=== PATIENT | female | born 1985 | race Caucasian/White ===

== ENCOUNTER → 2023-09-16 13:47 | Outpatient (BNVA) | payer BC, SELFPAY | PROVIDERS: PCP Physician Assistant Medical; Visit Provider Surgery ==

== ENCOUNTER 2023-10-21 07:54 | Outpatient (AMB) | payer BC, SELFPAY ==
--- OUTSIDE RECORDS SUMMARY | 2023-10-21 07:55 | XMS_ITS | Continuity of Care Document ---
Author Organization [facility] oenterology Address [address] [place] [address]- Care Team Providers Care Guest Laundry Attendant Name Role Phone Anjel Ridley Primary Care Physician [phone] Encounter [facility] Date(s): 05/11/22 - 06/10/22 [facility] G[facility] [address] [place] [address]- Attending Physician: Admtr, Duran Admitting Physician: Admtr, Ar8 Referring Physician: Admtr, Ar8 Allergies, Adverse Reactions, Alerts Substance Reaction Severity Status Adhesive Bandage Active Medications Beatriz By Mouth, 0 Refills, Maintenance, 12/11/21 17:15:00 EDT, Partial fill upon patient request if the prescription is for a schedule II opioid drug. Start Date: 12/11/21 Status: Ordered atorvastatin 10 mg oral tablet 1 tablet = 10 mg, By Mouth, Daily, 0 Refills, Maintenance, 12/11/21 17:14:00 EDT, Partial fill uponpatient request if the prescription is for a schedule II opioid drug. Start Date: 12/11/21 Status: Ordered CeleXA 40 mg oral tablet 40 mg, 1, tablet, By Mouth, Daily, Refills 0, Maintenance, 12/11/21 17:14:00 EDT, Partial fill uponpatient request if the prescription is for a schedule II opioid drug. Start Date: 12/11/21 Status: Ordered Shea = 0.35 mg, By Mouth, Daily, 0 Refills, Maintenance, 12/11/21 17:15:00 EDT, Partial fill upon patient request if the prescription is for a schedule II opioid drug. Start Date: 12/11/21 Status: Ordered omeprazole 40 mg oral enteric coated capsule 1 capsule = 40 mg, By Mouth, Daily, 0 Refills, Maintenance, 12/11/21 17:16:00 EDT, Partial fill upon patient request if the prescription is for a schedule II opioid drug. Start Date: 12/11/21 Status: Ordered Patient Care team information Care Team Personnel Name: Anjel Ridley Position: [facility] Outreach Member Role: PCP Address: Address: [address] [place] [address]- Care Team Related Persons Name: ROSA CLAYTON Address: [place] [address]
--- OUTSIDE RECORDS SUMMARY | 2023-10-21 07:55 | XMS_ITS | Continuity of Care Document ---
Author Organization [facility] oenterology Address [address] [place] [address]- Care Team Providers Care Radio Time Sales Supervisor Name Role Phone Anjel Ridley Primary Care Physician [phone] Encounter [facility] Date(s): 02/11/22 - 06/10/22 [facility] Gastroenterology [address] [place] [address]- Attending Physician: Fabio SALDANA, Emilie Vega Admitting Physician: Fabio SALDANA, Emilie Vega Referring Physician: Anjel Ridley Allergies, Adverse Reactions, Alerts Substance Reaction Severity [...] Care Team Personnel Name: Anjel Ridley Position: [facility] Outreach Member Role: PCP Address: Address: [address] [place] [address]- Care Team Related Persons Name: ROSA CLAYTON Address: home [address] [place] [address]
--- OUTSIDE RECORDS SUMMARY | 2023-10-21 07:55 | XMS_ITS | Continuity of Care Document ---
Author Organization [facility] Address [address] [place] [address]- Care Team Providers Care Exchange Teller Name Role Phone Anjel Ridley Primary Care Physician [phone] [place] [facility] [place] 07/17/23 - 07/17/23 [facility] [address] [place] [address]- Encounter Diagnosis Ankle sprain(Final) - 07/17/23 Strain of Achilles tendon(Final) - 07/17/23 Discharge Disposition: A-D/C Home Attending Physician: Ger Martinez MD Admitting Physician: Ger Martinez MD Referring Physician: Not on Staff, Referring MD Allergies, Adverse Reactions, Alerts Substance Reaction Severity [...] opioid drug. Start Date: 12/11/21 Status: Ordered Problem List Condition Confirmation Course Effective Dates Status Health St [facility]us Informant Obese class II Confirmed Active Results Radiology Reports * Exam Date Time Procedure Performing Provider Status 07/17/23 1:37 PM Foot Min 3 Views Right Cathy Germain; Auth (Verified) Notes: (Foot Min 3 Views Right) Reason For Exam: with Pain;Trauma RESULT: Foot Min 3 Views Right Ankle Min 3 Views Right, Foot Min 3 Views Right CLINICAL INDICATION: Hx of Present Illness: R Ankle Inj: Slip off of bottom stair, heard a pop and a crunch. Ank top of foot swollen. 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 AP, lateral, oblique views of the right foot were obtained. FINDINGS: There is no fracture or dislocation. The ankle mortise is not widened. Incidental accessory navicula. No retained foreign body is identified. Hindfoot midfoot alignment is normal. IMPRESSION: No fracture or dislocation. WSN: [id number] Ordering Physician: Elia Ambrose Dictated By: Serjio Dillard MD Dictated Date/Time: 07/17/23 1:50 pm Reviewed By: Serjio Dillard MD Signed By: Serjio Dillard MD Signed Date/Time: 07/17/23 1:50 pm Transcribed By: ROBERTA Transcribed Date/Time: 07/17/23 1:46 pm * Exam Date Time Procedure Performing Provider Status 07/17/23 1:37 PM Ankle Min 3 Views Right Cathy Germain ; Auth (Verified) Notes: (Ankle Min 3 Views Right) Reason For Exam: with Pain;Trauma RESULT: Ankle Min 3 Views Right Ankle Min 3 Views Right, Foot Min 3 Views Right CLINICAL INDICATION: Hx of Present Illness: R Ankle Inj: Slip off of bottom stair, heard a pop and a crunch. Ank top of foot swollen. 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 AP, lateral, oblique views of the right foot were obtained. FINDINGS: There is no fracture or dislocation. The ankle mortise is not widened. Incidental accessory navicula. No retained foreign body is identified. Hindfoot midfoot alignment is normal. IMPRESSION: No fracture or dislocation. WSN: [id number] Ordering Physician: Elia Ambrose Dictated By: Serjio Dillard MD Dictated Date/Time: 07/17/23 1:50 pm Reviewed By: Serjio Dillard MD Signed By: Serjio Dillard MD Signed Date/Time: 07/17/23 1:50 pm Transcribed By: ROBERTA Transcribed Date/Time: 07/17/23 1:46 pm Vital Signs Most recent to oldest [Reference Range]: 1 2 Height 155 cm (07/17/23 1:08 PM) 155 cm (07/17/23 1:04 PM) Weight 89.5 kg (07/17/23 1:08 PM) 89.5 kg (07/17/23 1:04 PM) Oxygen Saturation [94-100 %] 100 % (07/17/23 1:04 PM) Pulse Rate [55-90 bpm] 110 bpm *H* (07/17/23 1:04 PM) Body Mass Index [18.5-24.99 kg/m2] 37.25 kg/m2 *>HHI* (07/17/23 1:04 PM) Blood Pressure [90-138/55-84 mm Hg] 133/ 90mm Hg (07/17/23 1:04 PM) Respiratory Rate [16-30 br/min] 20 br/mi n (07/17/23 1:04 PM) Temperature [96.8-100.4 DegF] 97.5 DegF (07/17/23 1:04 PM) Mode of Delivery (Oxygen) Room air (07/17/23 1:04 PM) Blood pressure sites Arm, right (07/17/23 1:04 PM) Temperature Route Temporal (07/17/23 1:04 PM) Dry Weight 89.5 kg (07/17/23 1:08 PM) 89.5 kg (07/17/23 1:04 PM) Weight Obtained Via Patient/family state d (07/17/23 1:04 PM) Dry Weight Obtained Via Patient/family s tated (07/17/23 1:04 PM) Note * Elia Alejandro: PERFORM Event Display: Patient Education Leaflets Authored Date: [id number] Achilles Tendon Rupture, Partial or Complete ?? [id number] Achilles Tendon Rupture, Partial or Complete The Achilles tendon connects the muscles in the back of your lower leg to your heel bone. It lets you point your foot down. This is called a ???step on the gas pedal?? motion. This movement is important for walking, running, and jumping. A sudden strong contraction of the lower leg can partially tear (rupture) the Achilles tendon. This injury can happen while playing sports. This injury is more likely if you have injured the tendon in the past. It is also more likely if the tendon is inflamed from stress.?? When the injury happens, you may feel a pop or snap, or like you have been kicked. An Achilles tendon tear will cause swelling, bruising, and pain in the ankle area. You will have trouble walking??orpushing off the ground with your foot.?? A complete Achilles tear is often treated with surgery to attach the torn ends of the tendon. This is followed by??up to 12 weeks in a walking cast, boot, or splint. The injury can also be treated without surgery, but the tendon will take longer to heal. The risk of rupturing it again is also greater than with surgery. With either type of treatment, you may need physical therapy to strengthen your Achilles tendon. It??often??takes up to 6 months??to return to your past level of activity. And ittakes about 1 year to fully recover. Home care Medicine Your healthcare provider may prescribe medicines for pain. Or you may use acetaminophen or Ibuprofen to control the pain. Talk with your provider before taking these medicines if you have chronic liver or kidney disease. Also talk with your provider if you have had an ulcer or gastrointestinal bleeding. General care ??? Rest.??Use crutches as directed. Don't put any weight on the injured leg until your healthcare provider says it is OK.?? You will be told to see an orthopedic doctor as soon as possible. This is a doctor with special training to treat bone and muscle problems. ??? Use ice.??Put a cold pack on the injured area for 20 minutes at a time. Do this at least 4 to 8 times a day for the first 48 hours. After the first 48 hours, use the cold pack to ease pain and swelling, as needed. Youcan make your own cold pack from a sealed bag of frozen peas or ice. Wrap the bag in a towel.??Don???t put the cold source directly on your skin.??(If you are using ice, be careful to avoid getting the cast wet as the ice melts.) If you have a splint that can't be removed, put the cold pack over the splint. ??? Use compression.??The healthcare provider may give you an elastic wrap, boot, air cast, or splint to help ease swelling. Use this as the provider tells you to. ??? Elevate your leg.??During the first 48 hours, keep your injured leg elevated on a pillow when you are sitting or lying down. The pillow should be at a level above your heart. This is very important to reduce swelling. ??? Keep the splint or cast dry.??When bathing, protect it with a large plastic bag.??Make sure to tape the plastic bag??closed, or use rubber bands. If a fiberglass splint or cast gets wet, you can dry it with a business division chair. ?? Follow-up care You will be referred to an orthopedic doctor for follow-up care. Surgery may be needed to repair this injury, so it is very important to make an appointment with the specialist as soon as you can. ?? When to get medical advice Call your healthcare provider right away if any of these occur: ??? A plaster splint or cast gets wet or soft or breaks ??? A fiberglass splint or cast gets wet and doesn't dry in 24 hours ??? Pain or swelling gets worse, or redness appears ??? Toes??or the injured area??become cold, blue, numb, ortingly ??? You can't put weight on the injured leg after being told to do so ?? Last Reviewed Date: 2021 ?? [employer]. All rights reserved. This information is not intended as a substitute for professional medical care. Always follow your healthcare professional's instructions. ?? * Elia Alejandro: PERFORM Event Display: Patient Education Leaflets Authored Date: [id number] Ankle Sprain (Adult) ?? [id number] Ankle Sprain (Adult) An ankle sprain is a stretching or tearing of the ligaments that hold the ankle joint together. There are no broken bones. An ankle sprain is a common injury for both children and adults. It happens when the ankle turns, twists, or rolls in an awkward way. This can be caused by a sports injury. Or it can happen from doing something as simple as stepping on an uneven surface. Ligaments are made of tough connective tissue. Normally, ligaments stretch a certain amount and then go back to their normal place. A sprain happens when a ligament is forced to stretch more than thenormal amount. A severe sprain can actually tear the ligaments. If you have a severe sprain, you may have felt or heard something like a pop when you were injured. Ankle sprains are given a grade depending on whether they are mild, moderate, or severe: ??? Grade 1 sprain. A mild sprain with minor stretching and damage to the ligament. ??? Grade 2 sprain. A moderate sprain where the ligament is partly torn. ??? Grade 3 sprain. The most severe kind of sprain. The ligament is completely torn. Most sprains??take about 4 to 6 weeks to heal. A severe sprain can take several months to recover. Your healthcare provider may order X-rays to be sure you don???t have a fracture, or broken bone. The injured area will feel sore. Swelling and pain may make it hard to walk. You may need crutches if walking is painful. Or your provider may have you use a cast boot or air splint. This will dependon the grade of ankle sprain that you have. Home care ??? For a Grade 1 sprain, use RICE (rest, ice, compression, and elevation): ??? Rest your ankle. Don???t walk on it. ??? Ice should be used right away to help control swelling. Place an ice pack overthe injured area for 20 minutes. Do this every??3 to 6??hours??for the first??24 to 48 hours.??Keepusing ice packs to ease pain and swelling as needed. To make an ice pack, put ice cubes in a plastic??bag that seals at the top. Wrap the bag in a??clean, thin??towel or cloth. Never put ice or an ice pack directly on the skin. The ice pack can be put right on the cast, bandage, or splint. As the ice melts, be careful that the cast, bandage, or splint doesn???t get wet. If you have a boot, open it to apply an ice pack, unless told otherwise by your provider. ??? Compression devices help to control swelling. They also keep the ankle from moving and support your injured ankle. These devices include dressings, elastic bandages, and wraps. ??? Elevate or raise your ankle above the level of yourheart when sitting or lying down. This is very important for the first 48 hours. ??? Follow the RICE guidelines for a Grade 2 sprain. This type of sprain will take longer to heal. Your provider may have you wear a splint, cast, or brace to keep your ankle from moving. ?If you have a Grade 3 sprain, you are at risk for long-term ankle instability. In rare cases, surgery may be needed. Your provider may have you wear a short leg cast or a walking boot for 2 to 3 weeks. ??? After 48 hours, it may be helpful to apply heat??for 20 minutes several times a day. You can do this with a heating pad or warm compress. Or you may want to go back and forth between using ice and heat. Never apply heat directly to the skin. Always wrap the heating pad or warm compress in a clean, thin towel or cloth. ??? You may use??molf-sze-xollkke pain medicine??(NSAIDS or nonsteroidal anti-inflammatory drugs) to control pain, unless another pain medicine was prescribed. Talk with your provider before using these medicines if you have chronic liver or kidney disease, stomach ulcer or gastrointestinal bleeding, or if you take a blood thinner. ??? Follow any rehabilitation exercises your provider gives you.These can help you be more flexible and improve your balance and coordination. This is helpful in preventing long-term ankle problems. Prevention To help prevent ankle sprains, it???s important to have good strength, balance, and flexibility. Besure to: ??? Always warm up before you exercise or do something very active ??? Be careful when walking or running on uneven or cracked surfaces ??? Wear shoes that are in good condition and fit well??? Listen to your body???s signals to slow down when you are in pain or tired ?? Follow-up care Any X-rays you had today don???t show any broken bones, breaks, or fractures. Sometimes fractures don???t show up on the first X-ray. Bruises and sprains can sometimes hurt as much as a fracture. These injuries can take time to heal completely. If your symptoms don???t get better or they get worse,talk with your healthcare provider. You may need a repeat X-ray. Follow up with your healthcare provider, or as advised. Check for any warning signs listed below. ?? When to get medical advice Call your healthcare provider right away??if any of these occur: ??? Fever of 100.4 F (38 C) or higher, or as directed by your provider ??? Chills ??? The injury doesn???t seem to be healing ??? The swelling comes back ??? The cast or splint has a bad smell ??? The plaster cast or splint gets wet or soft ??? The fiberglass cast or splint gets wet and doesn't dry for 24 hours ??? Pain or swelling gets worse, or redness appears ??? Your toes become cold, blue, numb, or tingly ??? The skin is discolored (looks blue, purple, or luna), has blisters, or is irritated ??? You re-injure your ankle ?? Last Reviewed Date: 2021 ?? [id number] [employer]. All rights reserved. This information is not intended as a substitute for professional medical care. Always follow your healthcare professional's instructions. ?? Patient Care team information Care Team Personnel Name: Anjel Ridley Position: S Outreach Member Role: PCP Address: Address: [address] [place] [address]- Care Team Related Persons Name: ROSA CLAYTON Address: home [address] [place] [address]
--- NOTE | 2023-10-21 08:02 | A.OFFVIS_ITS ---
VS Expanded 10/21/23 08:28 Height 5 ft 2 in Weight 201 lb 8 oz BMI 36.9 Body Fat % 45.8 Body Fat Mass 92.4 Fat Free Mass 109.4 Visceral Fat Rating 11 Body Water % 38.8 Body Water Mass 78.2 Basal Metabolic Rate/Score 1,558 Intake Visit Reasons: [employer] BMI 36.1 Allergies peaches Allergy (Mild, Uncoded 10/21/23 08:03) Swelling strawberries Allergy (Uncoded 10/21/23 08:03) Swelling Medication List - Last Reconciled 10/21/23 by Gautam Tate MD atorvastatin 40 mg PO DAILY citalopram 40 mg PO DAILY hydroxyzine HCl 25 mg PO BID PRN lorazepam 0.5 mg PO DAILY PRN norethindrone (contraceptive) (Shea) 0.35 mg PO DAILY zolmitriptan 2.5 mg PO Q2-4H PRN HPI HPI [employer] BMI 36.1: Details: Start time: 8.00am, End time: 8.55am ?I spent 50 minutes speaking with the patient on the phone plus an additional 5 minutes reviewing and updating records for a total of 55 minutes HPI Comments Details: The patient has known familial hypercholesterolemia and has persistently high level of cholesterol depsite continuous use of high dose of statins. In addition, she is at high risk for premature CAD as her dad has his first CT at age 39 and since then he had 4 heart attacks and a stroke. Previous weight loss efforts: keto diet, weight watchers, Wegovy, 5 and 1 meal plan (no weight loss) Wakes up: 5.45am, Sleeps: 9pm Breakfast: skips Lunch: 12pm (chicken salad) Dinner: 7pm (pork or chicken with vegetable and starch) Snacks: 9-10am (Peanut butter crackers), 4pm (cottage cheese, pickles, nuts), 9pm (pretzels or popcorn) Exercise: Has a treadmill, bike or elliptical Fluids: Coffee: none, Hot tea: 3/wk (1 cup with splenda), soda: diet Gingerale, juice: none, ETOH: 2/wk (Vodka with seltzer 1-2 drinks x3-4/week [facility]LY [facility] Medical History (Updated 07/05/24 @ 08:33 by Gautam Tate MD) Daytime hypersomnia Snoring Premature coronary artery disease Familial hypercholesterolemia PCOS (polycystic ovarian syndrome) Medullary sponge kidney Back pain Migraines GERD (gastroesophageal reflux disease) Anxiety Depression Hyperlipidemia Surgical History (Updated 09/16/23 @ 14:13 by Whitney Deleon [facility]) Hx of wisdom tooth extraction Hx of abdominal surgery Hx of tonsillectomy Family History (Updated 10/19/23 @ 11:14 by Martha Carter CMA) Mother Hypertension Afib Father Hypertension Heart problem Traveling blood clot in leg Prediabetes Social History (Updated 10/19/23 @ 11:15 by Martha Carter CMA) Alcohol intake: current Alcohol intake frequency: a few times a week Patient Tobacco Use Status: Current everyday Tobacco user Tobacco use type: Cigarette Cigarettes Per Day: 5 Telehealth Telehealth Telehealth Platform: Telephone Location of provider rendering services: practice address Location of patient: address on file Patient Identification confirmed using: Name, : Yes Telehealth method: voice only Patient verbally consented to treatment: Yes Patient verbally consented to billing insurance company: Yes Patient informed of any privacy concerns related to visit: Yes Minutes spent on Phone/Video with Pt.: 55 Assessment & Plan Assessment & Plan (1) Obesity: Code(s): E66.9 - Obesity, unspecified Category: Medical Qualifiers: Obesity type: due to excess calories Obesity classification: adult class 2 (BMI 35 - 39.9) Serious obesity comorbidity presence: with serious comorbidity Body mass index: BMI 36.0-36.9 Qualified Code(s): E66.01 - Morbid (severe) obesity due to excess calories; Z68.36 - Body mass index [BMI] 36.0- 36.9, adult Plan: 1.? Plan for lap sleeve gastrectomy. If diaphragmatic or ventral hernias are present at time of surgery, these will be repaired laparoscopically as well. Risks and complications include possible conversion to an open procedure, anastomotic leak, bleeding requiring transfusion, small bowel obstruction, , DVT and pulmonary embolism, cardiac, or pulmonary complications, as chcf complications such as anastomotic ulcer, insufficient weight loss and vitamin deficiencies. I emphasized the importance of close follow-up, adherence to instructions and good communication. 2. You will receive a link of our software hipolito to generate an individualized nutritional and exercise plan specific for you. Please send me a screenshot of the plans you will generate Meal to include lean meat (beef, fish, pork, turkey, chicken), or uruguayan yogurt, or egg whites, or beans with a salad with olive oil and fruits (berries, pears, apples, kiwi). Avoid salt, breads, potatoes, rice, pasta, desserts. ?3. If you choose shakes, each shake would be drunk slowly, like coffee in a p eriod of 2 hours. ?4. If you choose bars, cut each bar in 4 pieces and eat each piece in 30min ?to make each bar last 2 hours. ?5. I emphasized the importance of measuring accurately the food portion and measure it when serving the food in plate ?6. The meal portions include a specific number of forks of meat and salad. You always eat the meat portion but you can replace up to half of salad/vegetables portion with rice, potatoes or pasta, or a fruit ?if you like. The less you do it the better weight loss will be. ?7. One full-size fork is what it can be scooped on the fork without falling aside and not what can be bit with the fork. Use regular forks like those you find in a typical restaurant. ?8.? Please send me weight measurements as soon as possible and then once a week. Always include your diet and exercise plan. 9. The best choice would be to purchase a stationary bike, elliptical or treadmill at home that can track calories. Let me know if you do so I can give you an exercise plan. ?10.?It is important of avoiding and for at least 18 months postoperatively and has been discussed at the infosession. ?11. Goal is to lose at least 1.5-2lbs per week ?12. Goal to lose 10% of your weight before surgery, which is about 20lbs. Ultimate weight goal: 181lbs before surgery 13. Please follow the diet plan exactly without any change. If you don't like something about the plan or you feel hungry you need to communicate with me so I can help you revise the plan. You should not change the plan yourself. 14. To be scheduled for EGD due to history of GERD. The possibility of biopsies was discussed. Patient needs to avoid use of NSAIDs and aspirin for 1 week prior to EGD. Risks of perforation and bleeding was discussed with the patient. This will be an outpatient procedure with IV sedation. Orders: Orders Insulin Today E28.2 - Polycystic ovarian syndrome, E66.9 - Obesity, unspecified, E78.01 - Familial hypercholesterolemia, E78.5 - Hyperlipidemia, unspecified, F32.A - Depression, unspecified, F41.9 - Anxiety disorder, unspecified, G43.909 - Migraine, unspecified, not intractable, without status migrainosus, G47.10 - Hypersomnia, unspecified, I25.10 - Atherosclerotic heart disease of [place] coronary artery without angina pectoris, K21.9 - Gastro- esophageal reflux disease without esophagitis, M54.9 - Dorsalgia, unspecified, Q61.5 - Medullary cystic kidney, R06.83 - Snoring, Z68.36 - Body mass index [BMI] 36.0-36.9, adult H Pylori Breath Test Today E28.2 - Polycystic ovarian syndrome, E66.9 - Obesity, unspecified, E78.01 - Familial hypercholesterolemia, E78.5 - Hyperlipidemia, unspecified, F32.A - Depression, unspecified, F41.9 - Anxiety disorder, unspecified, G43.909 - Migraine, unspecified, not intractable, without status migrainosus, G47.10 - Hypersomnia, unspecified, I25.10 - Atherosclerotic heart disease of [place] coronary artery without angina pectoris, K21.9 - Gastro-esophageal reflux disease without esophagitis, M54.9 - Dorsalgia, unspecified, Q61.5 - Medullary cystic kidney, R06.83 - Snoring, Z68.36 - Body mass index [BMI] 36.0-36.9, adult Complete Blood Count Auto Diff Today E28.2 - Polycystic ovarian syndrome, E66.9 - Obesity, unspecified, E78.01 - Familial hypercholesterolemia, E78.5 - Hyperlipidemia, unspecified, F32.A - Depression, unspecified, F41.9 - Anxiety disorder, unspecified, G43.909 - Migraine, unspecified, not intractable, without status migrainosus, G47.10 - Hypersomnia, unspecified, I25.10 - Atherosclerotic heart disease of [place] coronary artery without angina pectoris, K21.9 - Gastro-esophageal reflux disease without esophagitis, M54.9 - Dorsalgia, unspecified, Q61.5 - Medullary cystic kidney, R06.83 - Snoring, Z68.36 - Body mass index [BMI] 36.0-36.9, adult Lipid Panel Today E28.2 - Polycystic ovarian syndrome, E66.9 - Obesity, unspecified, E78.01 - Familial hypercholesterolemia, E78.5 - Hyperlipidemia, unspecified, F32.A - Depression, unspecified, F41.9 - Anxiety disorder, unspecified, G43.909 - Migraine, unspecified, not intractable, without status migrainosus, G47.10 - Hypersomnia, unspecified, I25.10 - Atherosclerotic heart disease of [place] coronary artery without angina pectoris, K21.9 - Gastro- esophageal reflux disease without esophagitis, M54.9 - Dorsalgia, unspecified, Q61.5 - Medullary cystic kidney, R06.83 - Snoring, Z68.36 - Body mass index [BMI] 36.0-36.9, adult Vitamin B12 and Folate Today E28.2 - Polycystic ovarian syndrome, E66.9 - Obesity, unspecified, E78.01 - Familial hypercholesterolemia, E78.5 - Hyperlipidemia, unspecified, F32.A - Depression, unspecified, F41.9 - Anxiety disorder, unspecified, G43.909 - Migraine, unspecified, not intractable, without status migrainosus, G47.10 - Hypersomnia, unspecified, I25.10 - Atherosclerotic heart disease of [place] coronary artery without angina pectoris, K21.9 - Gastro-esophageal reflux disease without esophagitis, M54.9 - Dorsalgia, unspecified, Q61.5 - Medullary cystic kidney, R06.83 - Snoring, Z68.36 - Body mass index [BMI] 36.0-36.9, adult Zinc Today E28.2 - Polycystic ovarian syndrome, E66.9 - Obesity, unspecified, E78.01 - Familial hypercholesterolemia, E78.5 - Hyperlipidemia, unspecified, F32.A - Depression, unspecified, F41.9 - Anxiety disorder, unspecified, G43.909 - Migraine, unspecified, not intractable, without status migrainosus, G47.10 - Hypersomnia, unspecified, I25.10 - Atherosclerotic heart disease of [place] coronary artery without angina pectoris, K21.9 - Gastro-esophageal reflux disease without esophagitis, M54.9 - Dorsalgia, unspecified, Q61.5 - Medullary cystic kidney, R06.83 - Snoring, Z68.36 - Body mass index [BMI] 36.0-36.9, adult Vitamin A Today E28.2 - Polycystic ovarian syndrome, E66.9 - Obesity, unspecified, E78.01 - Familial hypercholesterolemia, E78.5 - Hyperlipidemia, unspecified, F32.A - Depression, unspecified, F41.9 - Anxiety disorder, unspecified, G43.909 - Migraine, unspecified, not intractable, without status migrainosus, G47.10 - Hypersomnia, unspecified, I25.10 - Atherosclerotic heart disease of [place] coronary artery without angina pectoris, K21.9 - Gastro-esophageal reflux disease without esophagitis, M54.9 - Dorsalgia, unspecified, Q61.5 - Medullary cystic kidney, R06.83 - Snoring, Z68.36 - Body mass index [BMI] 36.0-36.9, adult Ferritin Today E28.2 - Polycystic ovarian syndrome, E66.9 - Obesity, unspecified, E78.01 - Familial hypercholesterolemia, E78.5 - Hyperlipidemia, unspecified, F32.A - Depression, unspecified, F41.9 - Anxiety disorder, unspecified, G43.909 - Migraine, unspecified, not intractable, without status migrainosus, G47.10 - Hypersomnia, unspecified, I25.10 - Atherosclerotic heart disease of [place] coronary artery without angina pectoris, K21.9 - Gastro- esophageal reflux disease without esophagitis, M54.9 - Dorsalgia, unspecified, Q61.5 - Medullary cystic kidney, R06.83 - Snoring, Z68.36 - Body mass index [BMI] 36.0-36.9, adult Vitamin D 25-OH Total Today E28.2 - Polycystic ovarian syndrome, E66.9 - Obesity, unspecified, E78.01 - Familial hypercholesterolemia, E78.5 - Hyperl ipidemia, unspecified, F32.A - Depression, unspecified, F41.9 - Anxiety disorder, unspecified, G43.909 - Migraine, unspecified, not intractable, without status migrainosus, G47.10 - Hypersomnia, unspecified, I25.10 - Atherosclerotic heart disease of [place] coronary artery without angina pectoris, K21.9 - Gastro-esophageal reflux disease without esophagitis, M54.9 - Dorsalgia, unspecified, Q61.5 - Medullary cystic kidney, R06.83 - Snoring, Z68.36 - Body mass index [BMI] 36.0-36.9, adult US abdomen comp w elastography Today E28.2 - Polycystic ovarian syndrome, E66.9 - Obesity, unspecified, E78.01 - Familial hypercholesterolemia, E78.5 - Hyperlipidemia, unspecified, F32.A - Depression, unspecified, F41.9 - Anxiety disorder, unspecified, G43.909 - Migraine, unspecified, not intractable, without status migrainosus, G47.10 - Hypersomnia, unspecified, I25.10 - Atherosclerotic heart disease of [place] coronary artery without angina pectoris, K21.9 - Gastro-esophageal reflux disease without esophagitis, M54.9 - Dorsalgia, unspecified, Q61.5 - Medullary cystic kidney, R06.83 - Snoring, Z68.36 - Body mass index [BMI] 36.0-36.9, adult ECG 12 lead EKG Today E28.2 - Polycystic ovarian syndrome, E66.9 - Obesity, unspecified, E78.01 - Familial hypercholesterolemia, E78.5 - Hyperlipidemia, unspecified, F32.A - Depression, unspecified, F41.9 - Anxiety disorder, unspecified, G43.909 - Migraine, unspecified, not intractable, without status migrainosus, G47.10 - Hypersomnia, unspecified, I25.10 - Atherosclerotic heart disease of [place] coronary artery without angina pectoris, K21.9 - Gastro- esophageal reflux disease without esophagitis, M54.9 - Dorsalgia, unspecified, Q61.5 - Medullary cystic kidney, R06.83 - Snoring, Z68.36 - Body mass index [BMI] 36.0-36.9, adult FL upper GI w air Today E28.2 - Polycystic ovarian syndrome, E66.9 - Obesity, unspecified, E78.01 - Familial hypercholesterolemia, E78.5 - Hyperlipidemia, unspecified, F32.A - Depression, unspecified, F41.9 - Anxiety disorder, unspecified, G43.909 - Migraine, unspecified, not intractable, without status migrainosus, G47.10 - Hypersomnia, unspecified, I25.10 - Atherosclerotic heart disease of [place] coronary artery without angina pectoris, K21.9 - Gastro- esophageal reflux disease without esophagitis, M54.9 - Dorsalgia, unspecified, Q61.5 - Medullary cystic kidney, R06.83 - Snoring, Z68.36 - Body mass index [BMI] 36.0-36.9, adult Hemoglobin A1c Today E28.2 - Polycystic ovarian syndrome, E66.9 - Obesity, unspecified, E78.01 - Familial hypercholesterolemia, E78.5 - Hyperlipidemia, unspecified, F32.A - Depression, unspecified, F41.9 - Anxiety disorder, unspecified, G43.909 - Migraine, unspecified, not intractable, without status migrainosus, G47.10 - Hypersomnia, unspecified, I25.10 - Atherosclerotic heart disease of [place] coronary artery without angina pectoris, K21.9 - Gastro- esophageal reflux disease without esophagitis, M54.9 - Dorsalgia, unspecified, Q61.5 - Medullary cystic kidney, R06.83 - Snoring, Z68.36 - Body mass index [BMI] 36.0-36.9, adult IRON PROFILE Today E28.2 - Polycystic ovarian syndrome, E66.9 - Obesity, unspecified, E78.01 - Familial hypercholesterolemia, E78.5 - Hyperlipidemia, unspecified, F32.A - Depression, unspecified, F41.9 - Anxiety disorder, unspecified, G43.909 - Migraine, unspecified, not intractable, without status migrainosus, G47.10 - Hypersomnia, unspecified, I25.10 - Atherosclerotic heart disease of [place] coronary artery without angina pectoris, K21.9 - Gastro- esophageal reflux disease without esophagitis, M54.9 - Dorsalgia, unspecified, Q61.5 - Medullary cystic kidney, R06.83 - Snoring, Z68.36 - Body mass index [BMI] 36.0-36.9, adult Comprehensive Met. Panel Today E28.2 - Polycystic ovarian syndrome, E66.9 - Obesity, unspecified, E78.01 - Familial hypercholesterolemia, E78.5 - Hyperlipidemia, unspecified, F32.A - Depression, unspecified, F41.9 - Anxiety disorder, unspecified, G43.909 - Migraine, unspecified, not intractable, without status migrainosus, G47.10 - Hypersomnia, unspecified, I25.10 - Atherosclerotic heart disease of [place] coronary artery without angina pectoris, K21.9 - Gastro-esophageal reflux disease without esophagitis, M54.9 - Dorsalgia, unspecified, Q61.5 - Medullary cystic kidney, R06.83 - Snoring, Z68.36 - Body mass index [BMI] 36.0-36.9, adult C Reactive Protein Today E28.2 - Polycystic ovarian syndrome, E66.9 - Obesity, unspecified, E78.01 - Familial hypercholesterolemia, E78.5 - Hyperlipidemia, unspecified, F32.A - Depression, unspecified, F41.9 - Anxiety disorder, unspecified, G43.909 - Migraine, unspecified, not intractable, without status migrainosus, G47.10 - Hypersomnia, unspecified, I25.10 - Atherosclerotic heart disease of [place] coronary artery without angina pectoris, K21.9 - Gastro- esophageal reflux disease without esophagitis, M54.9 - Dorsalgia, unspecified, Q61.5 - Medullary cystic kidney, R06.83 - Snoring, Z68.36 - Body mass index [BMI] 36.0-36.9, adult Vitamin B1 Today E28.2 - Polycystic ovarian syndrome, E66.9 - Obesity, unspecified, E78.01 - Familial hypercholesterolemia, E78.5 - Hyperlipidemia, unspecified, F32.A - Depression, unspecified, F41.9 - Anxiety disorder, unspecified, G43.909 - Migraine, unspecified, not intractable, without status migrainosus, G47.10 - Hypersomnia, unspecified, I25.10 - Atherosclerotic heart disease of [place] coronary artery without angina pectoris, K21.9 - Gastro- esophageal reflux disease without esophagitis, M54.9 - Dorsalgia, unspecified, Q61.5 - Medullary cystic kidney, R06.83 - Snoring, Z68.36 - Body mass index [BMI] 36.0-36.9, adult TSH reflex Free T4 Today E28.2 - Polycystic ovarian syndrome, E66.9 - Obesity, unspecified, E78.01 - Familial hypercholesterolemia, E78.5 - Hyperlipidemia, unspecified, F32.A - Depression, unspecified, F41.9 - Anxiety disorder, unspecified, G43.909 - Migraine, unspecified, not intractable, without status migrainosus, G47.10 - Hypersomnia, unspecified, I25.10 - Atherosclerotic heart disease of [place] coronary artery without angina pectoris, K21.9 - Gastro- esophageal reflux disease without esophagitis, M54.9 - Dorsalgia, unspecified, Q61.5 - Medullary cystic kidney, R06.83 - Snoring, Z68.36 - Body mass index [BMI] 36.0-36.9, adult XR chest 2V Today E28.2 - Polycystic ovarian syndrome, E66.9 - Obesity, unspecified, E78.01 - Familial hypercholesterolemia, E78.5 - Hyperlipidemia, unspecified, F32.A - Depression, unspecified, F41.9 - Anxiety disorder, unspecified, G43.909 - Migraine, unspecified, not intractable, without status migrainosus, G47.10 - Hypersomnia, unspecified, I25.10 - Atherosclerotic heart disease of [place] coronary artery without angina pectoris, K21.9 - Gastro- esophageal reflux disease without esophagitis, M54.9 - Dorsalgia, unspecified, Q61.5 - Medullary cystic kidney, R06.83 - Snoring, Z68.36 - Body mass index [BMI] 36.0-36.9, adult RT home sleep study Today E28.2 - Polycystic ovarian syndrome, E66.9 - Obesity, unspecified, E78.01 - Familial hypercholesterolemia, E78.5 - Hyperlipidemia, unspecified, F32.A - Depression, unspecified, F41.9 - Anxiety disorder, unspecified, G43.909 - Migraine, unspecified, not intractable, without status migrainosus, G47.10 - Hypersomnia, unspecified, I25.10 - Atherosclerotic heart disease of [place] coronary artery without angina pectoris, K21.9 - Gastro- esophageal reflux disease without esophagitis, M54.9 - Dorsalgia, unspecified, Q61.5 - Medullary cystic kidney, R06.83 - Snoring, Z68.36 - Body mass index [BMI] 36.0-36.9, adult Referrals Behavioral Health Referral E28.2 - Polycystic ovarian syndrome, E66.9 - Obesity, unspecified, E78.01 - Familial hypercholesterolemia, E78.5 - Hyperli pidemia, unspecified, F32.A - Depression, unspecified, F41.9 - Anxiety disorder, unspecified, G43.909 - Migraine, unspecified, not intractable, without status migrainosus, G47.10 - Hypersomnia, unspecified, I25.10 - Atherosclerotic heart disease of [place] coronary artery without angina pectoris, K21.9 - Gastro- esophageal reflux disease without esophagitis, M54.9 - Dorsalgia, unspecified, Q61.5 - Medullary cystic kidney, R06.83 - Snoring, Z68.36 - Body mass index [BMI] 36.0-36.9, adult Nutrition/Dietitian Referral E28.2 - Polycystic ovarian syndrome, E66.9 - Obesity, unspecified, E78.01 - Familial hypercholesterolemia, E78.5 - Hyperlipidemia, unspecified, F32.A - Depression, unspecified, F41.9 - Anxiety disorder, unspecified, G43.909 - Migraine, unspecified, not intractable, without status migrainosus, G47.10 - Hypersomnia, unspecified, I25.10 - Atherosclerotic heart disease of [place] coronary artery without angina pectoris, K21.9 - Gastro-esophageal reflux disease without esophagitis, M54.9 - Dorsalgia, unspecified, Q61.5 - Medullary cystic kidney, R06.83 - Snoring, Z68.36 - Body mass index [BMI] 36.0-36.9, adult
[2023-10-21 08:28] VITALS: BMI 36.9
== END 2023-10-21 08:56 | disposition home or self-care (01) ==
LOC: HO.HBS 07:54
PROVIDERS: PCP Physician Assistant Medical; Visit Provider Surgery
DX: E66.01 Morbid (severe) obesity due to excess calories (principal); Z68.36 Body mass index [BMI] 36.0-36.9, adult
CPT/HCPCS: 99443

== ENCOUNTER → 2023-10-21 07:54 | Outpatient (BNVA) | payer BC, SELFPAY | PROVIDERS: PCP Physician Assistant Medical; Visit Provider Surgery ==

== ENCOUNTER 2023-11-04 08:19 | Outpatient (REF) | payer BC, SELFPAY ==
--- NOTE | ~2023-11-04 | XR_ITS ---
EXAMINATION: XR CHEST CLINICAL INFORMATION: Obesity COMPARISON: None available. TECHNIQUE: 2 views of the chest were obtained. FINDINGS: No focal consolidation. No pneumothorax. Trachea is midline. Cardiac mediastinal silhouette is not enlarged. No large pleural effusion. Osseous structures are intact. Soft tissues are unremarkable. XR/XR chest 2V IMPRESSION: No acute cardiopulmonary process.
--- NOTE | ~2023-11-04 | US_ITS ---
EXAMINATION: US COMPLETE ABDOMEN WITH LIVER ELASTOGRAPHY CLINICAL INFORMATION: Obesity. COMPARISON: None available. TECHNIQUE: Real-time imaging of the abdominal viscera. Noninvasive ultrasound liver fibrosis assessment is performed using Reji ElastPQ point quantification shear wave elastography (2D-SWE) with a C5-2 MHz transducer. Multiple elastography samples are obtained. FINDINGS: PANCREAS: Normal. The visualized pancreatic head and body are normal in appearance. The remainder of the pancreas is obscured from visualization by the overlying bowel gas. ABDOMINAL AORTA: The proximal, middle, and distal aortic segments are normal in caliber. INFERIOR VENA CAVA: Visualized portions are normal. LIVER: The liver demonstrates normal size, contour and increased echogenicity. No focal lesion or intrahepatic biliary duct dilatation. The right lobe measures 15.9 cm in length. The left lobe measures 13.3 cm in length. Portal flow is towards the liver (hepatopetal). Shear wave liver elastography median stiffness is 1.37 m/s (reference: normal median stiffness is 1.3 m/s or less). IQR/median stiffness to assess sampling precision is 0.03 (reference: good quality data set is IQR/median stiffness of 0.15 or less). GALLBLADDER: Normal. The gallbladder is physiologically distended without evidence of stones, sludge, polyps, wall thickening or pericholecystic fluid. COMMON BILE DUCT: Normal in caliber measuring 0.3 cm in diameter. RIGHT KIDNEY: Normal. No hydronephrosis. No renal calculi or focal parenchymal lesions. The kidney measures 10.6 cm in maximum dimension. LEFT KIDNEY: Normal. No hydronephrosis. No renal calculi or focal parenchymal lesions. The kidney measures 10.1 cm in maximum dimension. SPLEEN: Normal. The spleen measures 9.7 cm in maximum dimension. FREE FLUID: None. US/US abdomen comp w elastography IMPRESSION: 1. There is generalized increase in hepatic echotexture, consistent with fatty infiltration or hepatocellular disease. Please correlate clinically. No focal hepatic mass or intrahepatic biliary dilatation is seen. 2. Liver elastography: In the absence of other known clinical signs, measurements rule out compensated advanced chronic liver disease. If there are known clinical signs, further testing may be needed for confirmation. REFERENCE: Society of [employer] in Ultrasound Liver Stiffness Thresholds (2020): LIVER STIFFNESS THRESHOLDS: *Liver Stiffness equal or less than 1.3 m/s: High probability of being normal. *Liver Stiffness less than 1.7 m/s: In the absence of other known clinical signs, rules out compensated advanced chronic liver disease. *Liver Stiffness 1.7-2.1 m/s: Suggestive of compensated advanced chronic liver disease but need further test for confirmation. *Liver Stiffness over 2.1 m/s: Rules in compensated advanced chronic liver disease. *Liver Stiffness over 2.4 m/s: Suggestive of clinically significant portal hypertension. QUALITY OF DATA SET: *IQR/Median value equal or less than 0.15 implies a quality data set. *IQR/Median value over 0.15 implies a poor quality data set. SIGNIFICANT CHANGE FROM PRIOR EXAM: Significant change if liver stiffness measurement is 10% or greater from prior exam. OTHER CONSIDERATIONS: The stage of liver fibrosis may be overestimated in the setting of acute hepatitis, liver inflammation, elevated liver function tests, hepatic vascular congestion, obstructive cholestasis, non-fasting state, and infiltrative diseases such as amyloidosis and lymphoma. In some patients with NAFLD, the liver stiffness thresholds for compensated advanced chronic liver disease may be lower. In causes other than viral hepatitis and NAFLD, liver stiffness thresholds are not well established.
--- NOTE | 2023-11-04 09:13 | ECG_ITS ---
Test Reason : OBESITY Blood Pressure : / mmHG Vent. Rate : 094 BPM Atrial Rate : 094 BPM P-R Int : 108 ms QRS Dur : 082 ms QT Int : 338 ms P-R-T Axes : 055 064 020 degrees QTc Int : 422 ms Sinus rhythm with short KS Otherwise normal ECG No previous ECGs available Referred By: Gautam Tate Electronically Signed By:MANPREET BURNS MD
[2023-11-04 09:52] LABS: MANUAL DIFF FLAG NO
[2023-11-04 10:35] LABS: Basophils Percent Auto 0.4 % (0-2); Eosinophils Absolute Auto 0.3 X10*3/uL (0.0-0.4); Eosinophils Percent Auto 2.9 % (0-4); Hemoglobin 14.9 g/dl (12.0-16.0); Imm Gran Abs Auto 0.03 X10*3/uL (0.00-0.03); Imm Gran Pct Auto 0.3 % (0.0-0.4); Lymphocytes Absolute Auto 3.5 X10*3/uL (1.2-4.9); Mean Corpuscular HGB Conc 33.9 g/dl (31.0-35.0); Mean Corpuscular Volume 91.5 fL (80.0-98.0); Mean Platelet Volume 10.2 fL (9.4-12.3); Monocytes Absolute Auto 0.7 X10*3/uL (0.1-1.2); Monocytes Percent Auto 7.7 % (2-11); Neutrophils Absolute Auto 4.6 x10*3/uL (2.0-8.3); Neutrophils Percent Auto 50.7 % (45-73); Platelet Count 316 X10*3/uL (160-400); Red Blood Count 4.81 X10*6/uL (4.20-5.50); Red Cell Distribution Width 12.5 % (11.0-16.0); White Blood Count 9.1 X10*3/uL (4.8-10.8)
[2023-11-04 13:14] LABS: Folate 15.1 ng/mL (> or = 4.0); Vitamin B12 595 pg/mL (200-900)
[2023-11-04 15:09] LABS: Estimated Average Glucose 93 mg/dL; Hemoglobin A1c % 4.88 % (<6.0)
[2023-11-04 21:29] LABS: Alanine Aminotransferase 19 U/L (0-31); Albumin Level 4.9 g/dL (3.5-5.0); Alkaline Phosphatase 66 U/L (39-117); Anion Gap 17 (12-20); Aspartate Amino Transferase 21 U/L (5-31); Bilirubin Total 0.5 mg/dL (0.0-1.0); Blood Urea Nitrogen 10 mg/dL (9-16); C Reactive Protein 0.12 mg/dL (< or = 0.50); Calcium 10.2 mg/dL (8.4-10.2); Carbon Dioxide 22 mmol/L (22-29); Chloride 104 mmol/L (96-108); Cholesterol 399 mg/dL (<200); Estimated Glomerular Filt Rate > 60; Ferritin 169 ng/mL (10-122); Glucose Random 88 mg/dL (60-115); HDL Cholesterol 63 mg/dL (>40); Iron 121 mcg/dL (30-160); LDL Cholesterol Calculated 302 mg/dL (<100); Percent Iron Saturation 34 % (15-50); Potassium 4.4 mmol/L (3.3-5.1); Sodium 139 mmol/L (135-145); TSH reflex Free T4 1.15 uIU/mL (0.32-4.0); Total Iron Binding Capacity 356 mcg/dL (228-428); Total Protein 7.6 g/dL (6.5-8.0); Triglycerides 172 mg/dL (<150); Unsaturated Iron Binding 235 ug/dL; Vitamin D 25-OH Total 18.6 ng/mL (>30)
[2023-11-04 22:11] LABS: Insulin 8 uU/mL (2-29)
[2023-11-08 04:54] LABS: Zinc 103 mcg/dL (60-130)
[2023-11-08 20:29] LABS: Vitamin A 92 mcg/dL (38-98)
[2023-11-11 07:24] LABS: Vitamin B1 7 nmol/L (8-30)
== END 2023-11-04 08:20 | disposition home or self-care (01) ==
LOC: HO.US 08:19
PROVIDERS: PCP Physician Assistant Medical; Visit Provider Surgery
DX: E66.9 Obesity, unspecified (principal); Z68.36 Body mass index [BMI] 36.0-36.9, adult; E78.5 Hyperlipidemia, unspecified; F32.A Depression, unspecified; F41.9 Anxiety disorder, unspecified; K21.9 Gastro-esophageal reflux disease without esophagitis; G43.909 Migraine, unspecified, not intractable, without status migrainosus; M54.9 Dorsalgia, unspecified; Q61.5 Medullary cystic kidney; E28.2 Polycystic ovarian syndrome; E78.01 Familial hypercholesterolemia; I25.10 Atherosclerotic heart disease of native coronary artery without angina pectoris; R06.83 Snoring; G47.10 Hypersomnia, unspecified
CPT/HCPCS: 36415; 71046; 76700; 76981; 80053; 80061; 82306; 82607; 82728; 82746; 83036; 83525; 83540; 84425; 84443; 84590; 84630; 85025; 86140; 93005

== ENCOUNTER → 2023-11-04 09:13 | Outpatient (BNV) | payer BC, SELFPAY | PROVIDERS: PCP Physician Assistant Medical; Visit Provider Internal Medicine Cardiovascular Disease | DX: E66.9 Obesity, unspecified (principal) | CPT/HCPCS: 93010 ==